=== PATIENT | male | born 1960 | race Caucasian/White ===

== ENCOUNTER 2019-04-02 16:09 | Emergency (ER) | payer MEDICAID ==
[~2019-04-02] VITALS: Ht 188 cm; Wt 90.0 kg
[2019-04-02] MEDS ORDERED: SODIUM CHLORIDE 0.9% 1,000 ML IV ONE ×2 (16:37→18:30)
[2019-04-02] MEDS ORDERED: TETANUS, DIPHTHERIA, PERTUSSIS VAC/PF 0.5ML (>7YR OLD) IM ONE (16:45)
[2019-04-02 17:21] LABS: BASOPHILS % 0.9 % (0.0-2.0); EOSINOPHILS % 2.1 % (0.0-5.0); HEMATOCRIT. 33.6 % (42.0-52.0); LYMPHOCYTES % 26.1 % (20.0-50.0); MEAN CORPUSCULAR HEMOGLOBIN 33.1 pg (28.0-32.0); MEAN CORPUSCULAR VOLUME 101.3 fL (80.0-94.0); MEAN PLATELET VOLUME 8.3 fl (7.4-10.4); MONOCYTES % 10.7 % (2.0-8.0); NEUTROPHILS % 60.2 % (40.0-76.0); PLATELET 207 x1000/uL (130-400); RED BLOOD CELL COUNT 3.32 mill/uL (4.7-6.1); RED CELL DISTRIBUTION WIDTH 21.3 % (11.6-14.6)
[2019-04-02 17:27] LABS: CHLORIDE 103 mEq/L (98-107)
[2019-04-02 17:32] LABS: CLARITY URINE CLEAR (CLEAR); COLOR URINE YELLOW (YELLOW); KETONES URINE NEGATIVE (NEGATIVE); LEUKOCYTE ESTERASE URINE NEGATIVE (NEGATIVE); NITRITE URINE NEGATIVE (NEGATIVE); OCCULT BLOOD URINE NEGATIVE (NEGATIVE); PROTEIN URINE TRACE (NEGATIVE); SPECIFIC GRAVITY URINE 1.017 (1.005-1.030); UROBILINOGEN URINE 0.2 E.U./dL (0.2-1.0)
[2019-04-02 17:33] LABS: INR 1.1; PROTHROMBIN TIME 11.1 sec (9.6-11.0)
[2019-04-02 17:44] LABS: *BARBITURATES SCREEN URINE NEGATIVE (NEGATIVE); *BENZODIAZEPINES SCREEN URINE NEGATIVE (NEGATIVE)
[2019-04-02 17:45] LABS: *AMPHETAMINES SCREEN URINE NEGATIVE (NEGATIVE); *COCAINE SCREEN URINE NEGATIVE (NEGATIVE); CANNABINOID URINE SCREEN PRESUMTIVE POSITIVE (NEGATIVE); METHADONE URINE SCREEN NEGATIVE (NEGATIVE); OPIATES URINE SCREEN NEGATIVE (NEGATIVE); PHENCYCLIDINE URINE SCREEN NEGATIVE (NEGATIVE)
[2019-04-02 17:58] LABS: ETHANOL BLOOD 369 mg/dL
[2019-04-02 23:32] VITALS: BP 88/52
== END 2019-04-02 23:36 | disposition home or self-care (01) ==
LOC: ER 16:09
DX: F10.129 Alcohol abuse with intoxication, unspecified (principal); Y90.8 Blood alcohol level of 240 mg/100 ml or more; R03.0 Elevated blood-pressure reading, without diagnosis of hypertension; S00.81XA Abrasion of other part of head, initial encounter; W01.198A Fall on same level from slipping, tripping and stumbling with subsequent striking against other object, initial encounter; Y93.89 Activity, other specified; Y92.830 Public park as the place of occurrence of the external cause; F12.90 Cannabis use, unspecified, uncomplicated
CPT/HCPCS: 36415; 70450; 71045; 80053; 80305; 80320; 81003; 85025; 85610; 90715; 93005; 96360; 96361; 99284; J7030; G0480